=== PATIENT | male | born 1965 | race Caucasian/White ===

== ENCOUNTER → 2017-08-07 | Outpatient (REF) | payer BC, OTHER ==
[2017-08-09 00:06] LABS: Lyme Disease IgG/IgM Antibodie <0.91 ISR (0.00-0.90); Lyme Disease IgM Ab Quantitati <0.80 index (0.00-0.79)
== END ==
LOC: M LAB REF 11:56
PROVIDERS: ATTEND Internal Medicine
DX: Z11.2 Encounter for screening for other bacterial diseases (principal); W57.XXXA Bitten or stung by nonvenomous insect and other nonvenomous arthropods, initial encounter; Y92.89 Other specified places as the place of occurrence of the external cause; Y93.89 Activity, other specified; Y99.8 Other external cause status

== ENCOUNTER → 2017-12-09 | Outpatient (REF) | payer BC, OTHER | LOC: M LAB REF 17:16 | DX: N39.0 Urinary tract infection, site not specified (principal) | CPT/HCPCS: 87086 ==

== ENCOUNTER → 2018-10-24 | Outpatient (REF) | payer BC, OTHER | LOC: M LAB REF 17:25 | PROVIDERS: ATTEND Nurse Practitioner Adult Health | DX: R35.0 Frequency of micturition (principal); R30.0 Dysuria ==

== ENCOUNTER → 2018-12-05 | Outpatient (REF) | payer BC | LOC: M SFHCCLAY 17:16 | PROVIDERS: ATTEND Urology | DX: N39.0 Urinary tract infection, site not specified (principal) ==

== ENCOUNTER → 2018-12-23 | Outpatient (CLI) | payer BC | LOC: M SMT 09:23 | PROVIDERS: ATTEND Urology | DX: R97.20 Elevated prostate specific antigen [PSA] (principal) ==

== ENCOUNTER → 2020-06-14 | Outpatient (CLI) | payer BC | LOC: M OUTALCOH 07:57 | PROVIDERS: ATTEND Psychiatry & Neurology Addiction Medicine | DX: F10.10 Alcohol abuse, uncomplicated (principal) ==

== ENCOUNTER 2020-06-23 10:00 | Outpatient (RCR) | payer BC | END 2020-06-25 | LOC: M OUTALCOH 10:00 | PROVIDERS: ATTEND Psychiatry & Neurology Addiction Medicine | DX: F10.10 Alcohol abuse, uncomplicated (principal) ==

== ENCOUNTER 2020-07-19 09:00 | Outpatient (RCR) | payer BC | END 2020-07-25 | LOC: M OUTALCOH 09:00 | PROVIDERS: ATTEND Psychiatry & Neurology Addiction Medicine | DX: F10.10 Alcohol abuse, uncomplicated (principal) ==

== ENCOUNTER → 2020-08-14 | Outpatient (CLI) | payer BC | LOC: M LABSMTC 08:48 | PROVIDERS: ATTEND Pediatrics | DX: Z20.828 Contact with and (suspected) exposure to other viral communicable diseases (principal) ==

== ENCOUNTER 2020-08-15 14:00 | Outpatient (RCR) | payer BC | END 2020-08-25 | LOC: M OUTALCOH 14:00 | PROVIDERS: ATTEND Psychiatry & Neurology Addiction Medicine | DX: F10.10 Alcohol abuse, uncomplicated (principal) ==

== ENCOUNTER → 2020-09-22 | Outpatient (CLI) | payer BC ==
[2020-09-22 15:00] LABS: BLOOD UREA NITROGEN 12 MG/DL (7-18); CALCIUM LEVEL 9.1 MG/DL (8.5-10.1); CARBON DIOXIDE LEVEL 28 MEQ/L (21-32); CHLORIDE LEVEL 109 MEQ/L (98-107); CREATININE FOR GFR 1.05 MG/DL (0.70-1.30); GLOMERULAR FILTRATION RATE > 60.0 (>56); GLUCOSE, FASTING 103 MG/DL (70-100); POTASSIUM SERUM 4.4 MEQ/L (3.5-5.1); SODIUM LEVEL 142 MEQ/L (136-145)
== END ==
LOC: M PLALAB 08:52
PROVIDERS: ATTEND Urology
DX: N28.89 Other specified disorders of kidney and ureter (principal)

== ENCOUNTER → 2020-09-26 | Outpatient (CLI) | payer BC ==
--- NOTE | 2020-09-27 09:26 | REP ---
INDICATION: RENAL MASS. COMPARISON: 03/25/2020 (outside examination) TECHNIQUE: Axial precontrast, arterial phase, portal phase, and delayed phased contrast-enhanced images of the abdomen with coronal and sagittal reformations. 100 cc Isovue 370 intravenous contrast material administered without complication. This CT examination was performed using the following dose reduction techniques: Automated exposure control, adjustment of mA and/or kv according to the patient's size, and the use of iterative reconstruction technique. FINDINGS: Right kidney includes 1.5 cm hypodense lesion along the anterior mid pole cortex which remains stable in density value throughout the examination and is consistent with complex cyst. Left kidney includes 1.5 cm anterior midpole benign cyst and 1.4 cm posterior lower pole benign cyst. No nephrolithiasis, hydronephrosis, or acute perinephric stranding. Liver, spleen, pancreas, gallbladder, and bilateral adrenal glands are normal. The visualized enteric system including stomach and portions of the small and large bowel appear normal. Few scattered colonic diverticula noted. 2 cm fat containing periumbilical hernia identified. No ascites. No free air. No intraperitoneal or retroperitoneal adenopathy. Abdominal aorta and vasculature appear normal. Musculoskeletal structures are intact and without acute osseous abnormality. IMPRESSION: 1. Right renal lesion likely represents complex cyst. Consider 6 month follow-up ultrasound examination and further surveillance if necessary. Left kidney includes simple benign cysts. <Electronically signed by Fidel Adame > 09/27/20 0901
== END ==
LOC: M RAD 08:27
PROVIDERS: ATTEND Urology
DX: N28.89 Other specified disorders of kidney and ureter (principal); N28.1 Cyst of kidney, acquired; K57.90 Diverticulosis of intestine, part unspecified, without perforation or abscess without bleeding

== ENCOUNTER → 2020-09-26 | Outpatient (CLI) | payer BC ==
[~2020-09-26] MED LIST: ISOVUE-370 76% 100ML VIAL As Ordered ONE
--- NOTE | 2020-09-27 09:18 | REP ---
INDICATION: PULMONARY NODULE COMPARISON: 03/25/2020 (outside examination) TECHNIQUE: Axial contrast enhanced images from the thoracic inlet to the upper abdomen with coronal and sagittal reformations using 75 ml Isovue 370 intravenous contrast material. [address] CT examination was performed using the following dose reduction techniques: Automated exposure control, adjustment of mA and/or kv according to the patient's size, and use of iterative reconstruction technique. FINDINGS: Lung rincon are well aerated. Few scattered small calcified and noncalcified nodules measure no greater than 3 mm and likely represent sequelae of prior granulomatous disease. No consolidation, significant nodule or mass lesion otherwise identified. No effusion. No pneumothorax. Tracheobronchial tree is patent. No axillary, hilar, or mediastinal adenopathy. Thoracic aorta, pulmonary vasculature, and heart/pericardium are relatively normal/stable. Surrounding musculoskeletal structures are intact. IMPRESSION: 1. Findings suggesting sequelae of prior granulomatous disease with innumerable scattered predominantly calcified nodules up to 3 mm. 2. No further acute mediastinal or pleuroparenchymal process appreciated. <Electronically signed by Fidel Adame > 09/27/20 0914
== END ==
LOC: M RAD 08:33
PROVIDERS: ATTEND Nurse Practitioner Adult Health
DX: R91.8 Other nonspecific abnormal finding of lung field (principal)
CPT/HCPCS: 71260; Q9967

== ENCOUNTER → 2020-11-02 | Outpatient (REF) | payer BC, OTHER | LOC: M LAB REF 12:35 | PROVIDERS: ATTEND Nurse Practitioner Adult Health | DX: R91.8 Other nonspecific abnormal finding of lung field (principal) ==

== ENCOUNTER 2021-01-29 20:08 | Emergency (ER) | payer BC, OTHER ==
[~2021-01-29] VITALS: Ht 170.2 cm; Wt 106.8 kg
[2021-01-29] MEDS ORDERED: NORV5TAB PO (20:20)
[2021-01-29 21:02] LABS: BASO # 0.1 10^3/uL (0.0-0.2); BASO % 0.4 % (0.0-1.0); EOS % 0.2 % (0.0-3.0); HEMATOCRIT 47.6 % (42.0-52.0); HEMOGLOBIN 16.6 g/dl (13.5-17.5); LYMPH # 0.9 10^3/uL (1.5-5.0); LYMPH % 8.5 % (24.0-44.0); MEAN CORPUSCULAR HEMOGLOBIN 29.7 pg (27.0-33.0); MEAN CORPUSCULAR HGB CONC 34.9 g/dl (32.0-36.5); MEAN CORPUSCULAR VOLUME 85.2 fl (80.0-96.0); MONO # 0.7 10^3/uL (0.0-0.8); MONO % 6.1 % (2.0-8.0); NEUTROPHILS # 9.4 10^3/uL (1.5-8.5); NEUTROPHILS % 84.4 % (36.0-66.0); PLATELET COUNT, AUTOMATED 220 10^3/uL (150-450); RED BLOOD COUNT 5.59 10^6/uL (4.30-6.10); WHITE BLOOD COUNT 11.1 10^3/uL (4.0-10.0)
[2021-01-29 21:24] LABS: ALBUMIN 4.3 GM/DL (3.2-5.2); BILIRUBIN,DIRECT 0.2 MG/DL (0.0-0.2); BILIRUBIN,TOTAL 0.9 MG/DL (0.2-1.0); TOTAL PROTEIN 7.3 GM/DL (6.4-8.2)
[2021-01-29] MEDS: ONDANSETRON 4MG/2ML VIAL IV ONE (21:57)
[2021-01-29] MEDS ORDERED: ISOVUE-370 76% 100ML VIAL As Ordered ONE (22:04)
[2021-01-29] MEDS: MORPHINE 4 MG/ML 1ML VIAL/SYRINGE (J2270) IV ONE (22:12)
[2021-01-29 22:39] VITALS: BP 207/98
[2021-01-29] MEDS: NS 1,000 ML IV ONE (22:39)
[2021-01-29] MEDS: amLODIPine 5 MG TAB PO ONE (22:39)
--- NOTE | 2021-01-29 23:25 | REPVR ---
PROCEDURE INFORMATION: Exam: CT Abdomen And Pelvis With Contrast Exam date and time: 01/29/2021 10:21 PM Age: 55 years old Clinical indication: Abdominal pain; Flank; Left; Additional info: Left flank pain TECHNIQUE: Imaging protocol: Computed tomography of the abdomen and pelvis with contrast. Radiation optimization: All CT scans at this facility use at least one of these dose optimization techniques: automated exposure control; mA and/or kV adjustment per patient size (includes targeted exams where dose is matched to clinical indication); or iterative reconstruction. Contrast material: ISOVUE 370; Contrast volume: 100 ml; Contrast route: INTRAVENOUS (IV); COMPARISON: CT ABD W/O FOLL BY WITH CONTRA 09/26/2020 8:51 AM FINDINGS: Liver: Small cysts in the liver. Liver is otherwise unremarkable. Gallbladder and bile ducts: Normal. No calcified stones. No ductal dilation. Pancreas: Normal. No ductal dilation. Spleen: Normal. No splenomegaly. Adrenal glands: Normal. No mass. Kidneys and ureters: There is mild left hydronephrosis with an obstructing 4 x 2 mm calculus in the distal left ureter, approximately 2 cm above the ureterovesical junction. Mild left perinephric and periureteral edema. Small cysts in both kidneys. No calculi or hydronephrosis on the right. Stomach and bowel: Unremarkable. No obstruction. No mucosal thickening. Appendix: No evidence of appendicitis. Intraperitoneal space: Unremarkable. No free air. No significant fluid collection. Vasculature: Unremarkable. No abdominal aortic aneurysm. Lymph nodes: Unremarkable. No enlarged lymph nodes. Urinary bladder: Unremarkable as visualized. Reproductive: Unremarkable as visualized. Bones/joints: There are degenerative changes in the spine and pelvis. Chronic T11 compression fracture. Soft tissues: Unremarkable. IMPRESSION: Left hydronephrosis with obstructing 2 x 4 mm distal left ureteral calculus. COMMENTS: Consistent with the [employer]'s Incidental Findings Committee white paper (J Am Violeta Radiol 2018): Any incidental renal lesion less than 1 cm or classified as too small to characterize, or any incidental cystic renal lesion characterized as simple-appearing, is likely benign. No follow-up imaging is recommended for these lesions per consensus recommendations based on imaging criteria. Electronically signed by: Rafael Mathis On 01/29/2021 23:24:38 PM
[2021-01-29] MEDS ORDERED: FLOM0.4C39 PO (23:52)
[2021-01-29] MEDS ORDERED: PERC5TAB12 PO (23:53)
[2021-01-30] VITALS: BP 164/83
[2021-01-30] MEDS: TAMSULOSIN 0.4 MG CAP PO ONE (00:04)
[2021-01-30] MEDS: OXYCODONE/APAP 5MG/325MG(BULK FOR ED) 1 TABLET PO ONE (00:05)
== END 2021-01-30 00:19 | disposition home or self-care (01) ==
LOC: M ED 20:08
DX: N20.1 Calculus of ureter (principal); I10 Essential (primary) hypertension; Z79.899 Other long term (current) drug therapy
CPT/HCPCS: 74177; 80047; 80076; 81001; 83605; 83690; 85025; 96361; 96374; 96375; 99284; J2270; J2405; Q9967

== ENCOUNTER → 2021-02-24 | Outpatient (REF) | payer BC ==
[~2021-02-24] MED LIST changes: +FLOM0.4C39 PO; -ISOVUE-370 76% 100ML VIAL As Ordered ONE; +NORV5TAB PO; +PERC5TAB12 PO
[2021-02-24 17:20] LABS: APPEARANCE, URINE CLEAR (CLEAR); BACTERIA, URINE AUTO NEGATIVE (NEGATIVE); BILIRUBIN, URINE AUTO NEGATIVE (NEGATIVE); BLOOD, URINE BLOOD 1+ (NEGATIVE); COLOR, URINE YELLOW (YELLOW); GLUCOSE, URINE (UA) AUTO NEGATIVE (NEGATIVE); KETONE, URINE AUTO NEGATIVE (NEGATIVE); LEUKOCYTE ESTERASE, URINE AUTO NEGATIVE (NEGATIVE); MUCUS, URINE SMALL (NEGATIVE); NITRITE, URINE AUTO NEGATIVE (NEGATIVE); PROTEIN, URINE AUTO NEGATIVE (NEGATIVE); RBC, URINE AUTO 1 /HPF (0-3); SPECIFIC GRAVITY URINE AUTO 1.019 (1.002-1.035); SQUAMOUS EPITHELIAL CELL UR AU 0 /HPF (0-6); UROBILINOGEN, URINE AUTO 0.2 mg/dL (0.0-2.0); WBC, URINE AUTO 0 /HPF (0-3)
== END ==
LOC: M SMT 16:34
PROVIDERS: ATTEND Urology
DX: N20.1 Calculus of ureter (principal)

== ENCOUNTER → 2021-02-24 | Outpatient (CLI) | payer BC ==
--- NOTE | 2021-02-24 16:29 | REP ---
INDICATION: CALCULUS OF URETER COMPARISON: None. TECHNIQUE: Supine views of the abdomen and pelvis. FINDINGS: Evaluation of the urinary tract system is limited due to technique and overlying bowel gas. Multiple calcifications in the pelvis are identified likely representing phleboliths. Small intrarenal calculi cannot be excluded. Bowel gas pattern demonstrates mild fecal stasis. Skeletal structures demonstrate age-related changes. IMPRESSION: 1. Limited evaluation for urinary tract calcifications. <Electronically signed by Fidel Adame > 02/24/21 [id number]
== END ==
LOC: M PLAIMG 15:37
PROVIDERS: ATTEND Urology
DX: N20.1 Calculus of ureter (principal)

== ENCOUNTER 2021-03-18 22:38 | Observation (INO) | payer BC ==
[~2021-03-18] VITALS: Ht 170.2 cm; Wt 115.0 kg
[2021-03-19] MEDS ORDERED: NS 1,000 ML IV ONE ×2 (02:05→06:40)
[2021-03-19] MEDS ORDERED: ONDANSETRON 4MG/2ML VIAL IV ONE (02:05)
[2021-03-19] MEDS ORDERED: KETOROLAC 30 MG/ML 1ML VIAL IV ONE (02:05)
[2021-03-19 02:09] LABS: BASO # 0.1 10^3/uL (0.0-0.2); BASO % 0.5 % (0.0-1.0); EOS % 0.2 % (0.0-3.0); HEMATOCRIT 48.2 % (42.0-52.0); HEMOGLOBIN 16.9 g/dl (13.5-17.5); LYMPH # 1.2 10^3/uL (1.5-5.0); LYMPH % 9.9 % (24.0-44.0); MEAN CORPUSCULAR HEMOGLOBIN 29.4 pg (27.0-33.0); MEAN CORPUSCULAR HGB CONC 35.1 g/dl (32.0-36.5); MONO % 8.2 % (2.0-8.0); NEUTROPHILS # 9.5 10^3/uL (1.5-8.5); NEUTROPHILS % 80.7 % (36.0-66.0); PLATELET COUNT, AUTOMATED 225 10^3/uL (150-450); RED BLOOD COUNT 5.74 10^6/uL (4.30-6.10); WHITE BLOOD COUNT 11.7 10^3/uL (4.0-10.0)
[2021-03-19 02:41] LABS: ALBUMIN 4.5 GM/DL (3.2-5.2); ALT/SGPT 38 U/L (12-78); BILIRUBIN,DIRECT 0.2 MG/DL (0.0-0.2); BILIRUBIN,TOTAL 0.7 MG/DL (0.2-1.0); BLOOD UREA NITROGEN 20 MG/DL (7-18); CALCIUM LEVEL 9.1 MG/DL (8.5-10.1); CARBON DIOXIDE LEVEL 24 MEQ/L (21-32); CHLORIDE LEVEL 110 MEQ/L (98-107); CREATININE FOR GFR 1.08 MG/DL (0.70-1.30); GLOMERULAR FILTRATION RATE > 60.0 (>56); GLUCOSE, FASTING 113 MG/DL (70-100); LIPASE 61 U/L (73-393); SODIUM LEVEL 141 MEQ/L (136-145); TOTAL PROTEIN 7.3 GM/DL (6.4-8.2)
--- NOTE | 2021-03-19 04:03 | REPVR ---
PROCEDURE INFORMATION: Exam: CT Abdomen And Pelvis Without Contrast Exam date and time: 03/19/2021 2:17 AM Age: 55 years old Clinical indication: Abdominal pain; Flank; Left; Additional info: L flank pain TECHNIQUE: Imaging protocol: Computed tomography of the abdomen and pelvis without contrast. Radiation optimization: All CT scans at this facility use at least one of these dose optimization techniques: automated exposure control; mA and/or kV adjustment per patient size (includes targeted exams where dose is matched to clinical indication); or iterative reconstruction. COMPARISON: 1. CT ABD/PEL W/IV CONTRAST ONLY 2021-01-29 22:[address] ABD W/O FOLL BY WITH CONTRA 2020-09-26 08:51 FINDINGS: Limitations: Study is limited by the absence of contrast. Lungs: Couple small noncalcified pulmonary nodules measuring to 4 mm. Mediastinal space: Small gastroesophageal sliding type hiatal hernia. Liver: Normal. No mass. Gallbladder and bile ducts: Normal. No calcified stones. No ductal dilation. Pancreas: Normal. No ductal dilation. Spleen: Normal. No splenomegaly. Adrenal glands: Normal. No mass. Kidneys and ureters: 8 mm obstructing left vesicoureteral junction calculus causes moderate left renal collecting system dilatation/hydronephrosis. Left renal swelling. Stomach and bowel: Unremarkable. No obstruction. No mucosal thickening. Appendix: No evidence of appendicitis. Intraperitoneal space: Unremarkable. No free air. No significant fluid collection. Vasculature: Unremarkable. No abdominal aortic aneurysm. Lymph nodes: Unremarkable. No enlarged lymph nodes. Urinary bladder: Unremarkable as visualized. Reproductive: Unremarkable as visualized. Bones/joints: Lumbar laminectomy. Soft tissues: Unremarkable. IMPRESSION: 1. 8 mm obstructing left vesicoureteral junction calculus causes moderate left renal collecting system dilatation/hydronephrosis. 2. Couple small noncalcified pulmonary nodules measuring to 4 mm. COMMENTS: As per Fleischner Society guidelines for follow-up and management of pulmonary nodules: For patients at low risk (minimal or absent history of smoking and of other known risk factors), recommend follow-up chest CT at 12 months; if unchanged, no further follow-up. For patient at high risk (history of smoking or of other known risk factors), recommend initial follow-up chest CT at 6-12 months, then at 18-24 months if no interval change. Electronically signed by: Jacob Ga On 03/19/2021 04:02:28 AM
[2021-03-19] MEDS ORDERED: MORPHINE 4 MG/ML 1ML VIAL/SYRINGE (J2270) IV ONE (04:15)
[2021-03-19] MEDS ORDERED: NS 1,000 ML IV SCH ×2 (04:25)
[2021-03-19] MEDS ORDERED: ACETAMINOPHEN TAB 650MG DOSE (2X325MG) PO PRN (04:25)
[2021-03-19] MEDS ORDERED: MORPHINE 4 MG/ML 1ML VIAL/SYRINGE (J2270) IV PRN (04:25)
[2021-03-19] MEDS ORDERED: AMLO1TAB25 PO (04:34)
[2021-03-19] MEDS ORDERED: ONDANSETRON 4MG/2ML VIAL IV PRN ×2 (04:40→10:15)
[2021-03-19] MEDS ORDERED: MORPHINE 2 MG/ML 1ML VIAL (J2270) IV PRN (04:40)
--- NOTE | 2021-03-19 04:52 | HPEPDOC ---
[facility] Medical History & Physical Date of Admission Mar 19, 2021 Date of Service: Mar 19, 2021 Attending Physician: TAWNYA WHITE MD History and Physical CHIEF COMPLAINT: [55 y/o M c/o left flank pain x1 day] HISTORY OF PRESENT ILLNESS: [This is a 55 y/o male with a pmh of htn who presents to our ed with a cc of left sided flank pain that began yesterday 03/18. Patient states that he had this same pain approx 1 month ago and at that time was diagnosed with nephrolithiasis but had spontaneous resolution without passing the stone. Patient was put on pain medication and flomax at that time. Patient states that his pain returned approx one week ago as well but was short lived. Patient contacted his urologist, Dr. Rudd, about these symptoms and was told that if they return, to report to the ED. Patient states that his pain came on acutely yesterday and decided to come in for evaluation. Patient describes his pain as severe left sided flank pain that goes into his lower abdomen. Patient states that he is still able to urinate and it is not painful to do so. Patient notes no blood in his urine. Patient endorses associated chills, nausea, and one episode of dry heaving. Patient, at the time of my exam, denies fevers, cough, sob, chest pain, chest tightness, diarrhea, constipation, lower extremity edema, syncope, dizziness. Patient found to have 8mm obstructing left sided uvj stone on CT in the ED. ] PAST MEDICAL HISTORY: 1. [See HPI PAST SURGICAL HISTORY: 1. [Unspec. right arm surgery]. 2. [Unspec back surgery]. 3. [Unspec. finger surgery 4. Unspec. wrist surgery]. SOCIAL HISTORY: Tobacco use:[Denies] ETOH: [Denies] Illicit drug use: [Denies] FAMILY HISTORY: Father - cad, pancreatic ca ALLERGIES: Please see below. REVIEW OF SYSTEMS: CONSTITUTIONAL: [See HPI]. HEENT: [Denies uri type sx]. CARDIOVASCULAR: [Denies chest pain, palpitations]. RESPIRATORY: [Denies sob, wheezing]. GASTROINTESTINAL: [See HPI]. GENITOURINARY: [See HPI]. SKIN: [Denies rash]. MUSCULOSKELETAL: [Denies acute joint/back pain]. NEUROLOGICAL: [Denies syncope, paresthesias]. ENDOCRINE: [Denies hx of DM]. HEMATOLOGIC/LYMPHATIC: [Denies easy bruising]. HOME MEDICATIONS: Please see below. PHYSICAL EXAMINATION: VITAL SIGNS: Please see below. GENERAL APPEARANCE: [This is a 55 y/o male who is alert and oriented to all questioning. He does not appear to be in any acute stress.]. HEENT: [No mass or lesion. EOMI. No scleral icterus. Nares patent. Oral mucosa moist]. CARDIOVASCULAR: [Regular rate, rhythm. No murmurs, rubs, gallops]. LUNGS: [Good air flow b/l. No wheezing, rales, rhonchi]. ABDOMEN: [Soft, mildly tender to suprapubic region]. MUSCULOSKELETAL: [No joint deformity]. EXTREMITIES: [No pedal edema appreciated. No overlying skin changes. Pulses intact.]. NEUROLOGICAL: [Speech clear. A+Ox3. No focal deficits]. PSYCHIATRIC: [Mood and affect appear appropriate.]. LABORATORY DATA: See below. IMAGING: [CT Abd/pelvis: FINDINGS: Limitations: Study is limited by the absence of contrast. Lungs: Couple small noncalcified pulmonary nodules measuring to 4 mm. Mediastinal space: Small gastroesophageal sliding type hiatal hernia. Liver: Normal. No mass. Gallbladder and bile ducts: Normal. No calcified stones. No ductal dilation. Pancreas: Normal. No ductal dilation. Spleen: Normal. No splenomegaly. Adrenal glands: Normal. No mass. Kidneys and ureters: 8 mm obstructing left vesicoureteral junction calculus causes moderate left renal collecting system dilatation/hydronephrosis. Left renal swelling. Stomach and bowel: Unremarkable. No obstruction. No mucosal thickening. Appendix: No evidence of appendicitis. Intraperitoneal space: Unremarkable. No free air. No significant fluid collection. Vasculature: Unremarkable. No abdominal aortic aneurysm. Lymph nodes: Unremarkable. No enlarged lymph nodes. Urinary bladder: Unremarkable as visualized. Reproductive: Unremarkable as visualized. Bones/joints: Lumbar laminectomy. Soft tissues: Unremarkable. IMPRESSION: 1. 8 mm obstructing left vesicoureteral junction calculus causes moderate left renal collecting system dilatation/hydronephrosis. 2. Couple small noncalcified pulmonary nodules measuring to 4 mm. ] MICROBIOLOGY: Please see below. ASSESSMENT: [This is a 55 y/o male with a pmh of htn who presents to our ed with a cc of left sided flank pain that began yesterday 03/18. Patient states that he had this same pain approx 1 month ago and at that time was diagnosed with nephrolithiasis but had spontaneous resolution without passing the stone. Patient found to have 8mm obstructing left sided uvj stone on CT in the ED. ]. . PLAN: 1. [Left sided hydronephrosis 2/2 8mm obstructing uvj stone - Dr. Lucero, urology, has been consulted from the ED. Plan to take pt to OR for stenting. Assistance greatly appreciated. - Patient medically optimized for procedure - NPO diet for procedure - will give ivf in the mean time - Pain control with toradol, morphine - Zofran for nausea - Admit to med surg for tx 2. HTN - continue amlodipine DVT prophylaxis - mechanical]. Vital Signs Vital Signs Date Time Temp Pulse Resp B/P (MAP) Pulse Ox O2 Delivery O2 Flow Rate FiO2 03/19/21 04:43 18 Room Air 03/19/21 03:30 144/85 (104) 03/19/21 03:23 65 90 03/18/21 22:39 98.4 Laboratory Data Labs 24H Laboratory Tests 2 03/18/21 23:03: Urine Color YELLOW, Urine Appearance CLEAR, Urine pH 6.0, Urine Specific [place] 1.017, Urine Protein NEGATIVE, Urine Glucose (UA) NEGATIVE, Urine Ketones NEGATIVE, Urine Blood NEGATIVE, Urine Nitrite NEGATIVE, Urine Bilirubin NEGATIVE, Urine Urobilinogen 0.2, Urine Leukocyte Esterase NEGATIVE, Urine WBC (Auto) 1, Urine RBC (Auto) 3, Urine Hyaline Casts (Auto) 0, Urine Bacteria (Auto) NEGATIVE, Urine Squamous Epithelial Cells 0, Urine Sperm (Auto) 03/19/21 02:00: Immature Granulocyte % (Auto) 0.5, Neutrophils (%) (Auto) 80.7H, Lymphocytes (%) (Auto) 9.9L, Monocytes (%) (Auto) 8.2H, Eosinophils (%) (Auto) 0.2, Basophils (%) (Auto) 0.5, Neutrophils # (Auto) 9.5H, Lymphocytes # (Auto) 1.2L, Monocytes # (Auto) 1.0H, Eosinophils # (Auto) 0.0, Basophils # (Auto) 0.1, Nucleated Red Blood Cells % (auto) 0.0, Anion Gap 7L, Glomerular Filtration Rate > 60.0, Calcium Level 9.1, Total Bilirubin 0.7, Direct Bilirubin 0.2, Aspartate Amino Transf (AST/SGOT) 18, Alanine Aminotransferase (ALT/SGPT) 38, Alkaline Phosphatase 63, Total Protein 7.3, Albumin 4.5, Albumin/Globulin Ratio 1.6, Lipase 61L CBC/BMP Laboratory Tests 03/19/21 02:00 Home Medications Scheduled Amlodipine Besylate (Amlodipine Besylate) 10 Mg Tablet, 10 MG PO QHS Allergies Coded Allergies: No Known Allergies (Unverified , 01/29/21) A-FIB/CHADSVASC A-FIB History Current/History of A-Fib/PAF?: No LUISA VALENTIN Mar 19, 2021 04:52
[2021-03-19] MEDS ORDERED: cefTRIAXone SOD 1 GM in D5W MINI-BAG PLUS 50 ML IV SCH (05:00)
[2021-03-19 05:35] LABS: RSV AMPLIFICATION NEGATIVE (NEGATIVE)
--- NOTE | 2021-03-19 05:54 | IPNPDOC ---
Subjective Review oF Systems Chief Complaint The patient is a 55-year-old male admitted with a reason for visit of Ureterolithiasis. History and Physical CHIEF COMPLAINT: Left distal ureteral stone and recurrent renal colic HISTORY OF PRESENT ILLNESS: 55 y/o male with a pmh of htn who presents to our ed with a cc of left sided flank pain that began yesterday 03/18. Patient states that he had this same pain approx 1 month ago and at that time was diagnosed with nephrolithiasis but had spontaneous resolution without passing the stone. Patient was put on pain medication and flomax at that time. Patient states that his pain returned approx one week ago. Patient contacted his urologist, Dr. Rudd, about these symptoms and was told that if they return, to report to the ED. Patient states that his pain came on acutely yesterday and decided to come in for evaluation. Patient describes his pain as severe left sided flank pain that goes into his lower abdomen. Patient states that he is still able to urinate and it is not painful to do so. Patient notes no blood in his urine. Patient endorses associated chills, nausea, and one episode of dry heaving. Patient denies fevers and chills. CT reveled a 8mm obstructing left sided uvj stone. PAST MEDICAL HISTORY: HTN PAST SURGICAL HISTORY: 1. [Unspec. right arm surgery]. 2. [Unspec back surgery]. 3. [Unspec. finger surgery 4. Unspec. wrist surgery]. SOCIAL HISTORY: Tobacco use:[Denies] ETOH: [Denies] Illicit drug use: [Denies] FAMILY HISTORY: Father - cad, pancreatic ca ALLERGIES: Please see below. REVIEW OF SYSTEMS: CONSTITUTIONAL: [See HPI]. HEENT: [Denies uri type sx]. CARDIOVASCULAR: [Denies chest pain, palpitations]. RESPIRATORY: [Denies sob, wheezing]. GASTROINTESTINAL: [See HPI]. GENITOURINARY: [See HPI]. SKIN: [Denies rash]. MUSCULOSKELETAL: [Denies acute joint/back pain]. NEUROLOGICAL: [Denies syncope, paresthesias]. ENDOCRINE: [Denies hx of DM]. HEMATOLOGIC/LYMPHATIC: [Denies easy bruising]. HOME MEDICATIONS: Please see below. PHYSICAL EXAMINATION: GENERAL APPEARANCE: [This is a 55 y/o male who is alert and oriented to all questioning. He does not appear to be in any acute stress.]. . ABDOMEN: Soft, + left CVAT IMAGING: [CT Abd/pelvis: FINDINGS: Limitations: Study is limited by the absence of contrast. Lungs: Couple small noncalcified pulmonary nodules measuring to 4 mm. Mediastinal space: Small gastroesophageal sliding type hiatal hernia. Liver: Normal. No mass. Gallbladder and bile ducts: Normal. No calcified stones. No ductal dilation. Pancreas: Normal. No ductal dilation. Spleen: Normal. No splenomegaly. Adrenal glands: Normal. No mass. Kidneys and ureters: 8 mm obstructing left vesicoureteral junction calculus causes moderate left renal collecting system dilatation/hydronephrosis. Left renal swelling. Stomach and bowel: Unremarkable. No obstruction. No mucosal thickening. Appendix: No evidence of appendicitis. Intraperitoneal space: Unremarkable. No free air. No significant fluid collection. Vasculature: Unremarkable. No abdominal aortic aneurysm. Lymph nodes: Unremarkable. No enlarged lymph nodes. Urinary bladder: Unremarkable as visualized. Reproductive: Unremarkable as visualized. Bones/joints: Lumbar laminectomy. Soft tissues: Unremarkable. IMPRESSION: 1. 8 mm obstructing left vesicoureteral junction calculus causes moderate left renal collecting system dilatation/hydronephrosis. 2. Couple small noncalcified pulmonary nodules measuring to 4 mm. ] ASSESSMENT: 55 y/o male renal colic and 8mm obstructing left sided uvj stone on CT . PLAN: admit to hospitalist for cysto stent possible URS/lithotripsy Objective Vital Signs/I&O Vital Signs Date Time Temp Pulse Resp B/P (MAP) Pulse Ox O2 Delivery O2 Flow Rate FiO2 03/19/21 04:43 18 Room Air 03/19/21 03:30 144/85 (104) 03/19/21 03:23 65 90 03/18/21 22:39 98.4 I&O- Last 24 Hours up to 6 AM 03/19/21 05:59 Intake Total 1000 ml Balance 1000 ml Laboratory Data Labs 24H Laboratory Tests 2 03/18/21 23:03: Urine Color YELLOW, Urine Appearance CLEAR, Urine pH 6.0, Urine Specific [place] 1.017, Urine Protein NEGATIVE, Urine Glucose (UA) NEGATIVE, Urine Ketones NEGATIVE, Urine Blood NEGATIVE, Urine Nitrite NEGATIVE, Urine Bilirubin NEGATIVE, Urine Urobilinogen 0.2, Urine Leukocyte Esterase NEGATIVE, Urine WBC (Auto) 1, Urine RBC (Auto) 3, Urine Hyaline Casts (Auto) 0, Urine Bacteria (Auto) NEGATIVE, Urine Squamous Epithelial Cells 0, Urine Sperm (Auto) 03/19/21 02:00: Immature Granulocyte % (Auto) 0.5, Neutrophils (%) (Auto) 80.7H, Lymphocytes (%) (Auto) 9.9L, Monocytes (%) (Auto) 8.2H, Eosinophils (%) (Auto) 0.2, Basophils (%) (Auto) 0.5, Neutrophils # (Auto) 9.5H, Lymphocytes # (Auto) 1.2L, Monocytes # (Auto) 1.0H, Eosinophils # (Auto) 0.0, Basophils # (Auto) 0.1, Nucleated Red Blood Cells % (auto) 0.0, Anion Gap 7L, Glomerular Filtration Rate > 60.0, Calcium Level 9.1, Total Bilirubin 0.7, Direct Bilirubin 0.2, Aspartate Amino Transf (AST/SGOT) 18, Alanine Aminotransferase (ALT/SGPT) 38, Alkaline Phosphatase 63, Total Protein 7.3, Albumin 4.5, Albumin/Globulin Ratio 1.6, Lipase 61L 03/19/21 04:51: Coronavirus (COVID-19)(PCR) NEGATIVE, Influenza Type A (RT-PCR) NEGATIVE, Influenza Type B (RT-PCR) NEGATIVE, Respiratory Syncytial Virus (PCR) NEGATIVE CBC/BMP Laboratory Tests 03/19/21 02:00 Assessment/Plan Date Seen The patient was seen on 03/19/21. Plan/VTE VTE Prophylaxis Ordered?: Yes EMIL ARREAGA M.D. Mar 19, 2021 05:54
[2021-03-19] MEDS ORDERED: CIPROFLOXACIN 400 MG in IV 1 EA IV SCH (06:00)
[2021-03-19] MEDS ORDERED: D5W/0.45% SODIUM CHLORIDE 1,000 ML IV SCH (06:30)
[2021-03-19] MEDS ORDERED: CONRAY-60 60% 50ML VIAL (Q9961) As Ordered ONE (07:18)
[2021-03-19 07:23] LABS: INR 1.01; PROTHROMBIN TIME 13.5 SECONDS (12.5-14.3)
[2021-03-19 07:24] LABS: PARTIAL THROMBOPLASTIN TIME 29.3 SECONDS (24.2-38.5)
[2021-03-19] MEDS ORDERED: KETOROLAC 30 MG/ML 1ML VIAL IV PRN (08:00)
[2021-03-19] MEDS ORDERED: ACETAMINOPHEN 1000MG 100ML IV BTL (OFIRMEV) (J0131 PER 10MG) As Ordered ONE (08:51)
[2021-03-19] MEDS ORDERED: ePHEDrine SULFATE 25 MG/5 ML(5MG/ML) SYRINGE As Ordered ONE (08:51)
[2021-03-19] MEDS ORDERED: propofoL 200 MG/20 ML VIAL As Ordered ONE (08:51)
[2021-03-19] MEDS ORDERED: LIDOCAINE 2% 100MG/5ML SDV (FOR ANES.) As Ordered ONE (08:51)
[2021-03-19] MEDS ORDERED: MIDAZOLAM INJ 2MG/2ML VIAL (J2250 PER 1MG) As Ordered ONE (08:51)
[2021-03-19] MEDS ORDERED: dexameTHASONE 4 MG/ML 1ML VIAL (J1100 PER 1MG) As Ordered ONE (08:51)
[2021-03-19] MEDS ORDERED: ONDANSETRON 4MG/2ML VIAL As Ordered ONE (08:51)
[2021-03-19] MEDS ORDERED: fentaNYL 250 MCG/5 ML INJECTION (J3010) As Ordered ONE (08:51)
--- NOTE | 2021-03-19 09:23 | REP ---
INDICATION: STENT PLACEMENT LEFT SIDE. COMPARISON: Comparison CT study earlier this date. Left distal ureteral calculus.. TECHNIQUE: Single fluoroscopically obtained spot radiograph of the abdomen. 11 seconds of fluoroscopy time is reported. FINDINGS: A single fluoroscopically obtained spot radiograph of the abdomen document left ureteral stent placement. IMPRESSION: Procedural imaging. <Electronically signed by Merlin Blair > 03/19/21 [id number]
--- NOTE | 2021-03-19 09:30 | ROOPDOC ---
[facility] Report Of Operation Report of Operation DATE OF PROCEDURE: 03/19/21 PREPROCEDURE DIAGNOSES: LEFT RENAL COLIC AND LEFT DISTAL URETERAL NEPHROLITHIASIS POSTPROCEDURE DIAGNOSES: same PROCEDURE PERFORMED: 1. Cystoscopy 2. Left ureteroscopy and laser lithotripsy 3. Insertion of left ureteral stent SURGEON: EMIL ARREAGA MD RIVET PASSER: NONE ANESTHESIA: GENERAL LMA ESTIMATED BLOOD LOSS: Approximately 1 mL. COMPLICATIONS: NONE REMARKS: NORMAL RETROGRADE FINDINGS: 8 mm left ureteral stone SPECIMENS REMOVED: NONE PROCEDURE NOTE: 55 YO MAN OBSTRUCTING LEFT URETERAL STONE AND COLIC CAME TO ER AND ADMITTED FOR PAIN CONTROL. DESCRIPTION OF PROCEDURE: PATIENT WAS TAKEN TO THE OR AND TIME OUT AND CONSENT VERIFIED. HE RECEIVED IV [id number] IN THE ER. HE UNDERWENT GENERAL ANESTHESIA WITH LMA, WAS PLACED IN THE DORSOLITHOTOMY POSITION AND PREPPED AND DRAPED IN THE USUAL STERILE FASHION. A 21 FR CYSTOSCOPE WAS INTRODUCED INTO THE URETHRA AND BLADDER, WHICH WAS UNREMARKABLE. THE LEFT OU WAS IDENTIFIED AND 0.38 GUIDEWIRE PLACED INTO THE KIDNEY. A SMALL SEMIRIGID URETEROSCOPE WAS INTRODUCE INTO THE DISTAL URETER,, THE 8 MM STONE WAS LASER DUSTED AND FRAGMENT AND 4 MM PIECE REMOVES AND SENT TO PATHOLOGY/CHEMISTRY. THE CYSTOSCOPE WAS USED TO INSERT A 6 FR MULTILENGTH URETERAL STENT WAS INSERTED INTO THE KIDNEY AND DISTAL COIL IN THE BLADDER. THE BLADDER WAS DRAINED AND CYSTOSCOPE REMOVED. PATIENT WAS AWAKENED AND TRANSFERRED TO THE PACU. HE TOLERATED THE PROCEDURE WELL WITHOUT COMPLICATIONS. HE WILL BE DISCHARGED HOME AND F/U IN THE [facility] TO SCHEDULE STENT REMOVAL IN 1-2 WEEKS. EMIL ARREAGA M.D. Mar 19, 2021 09:30
[2021-03-19 10:10] VITALS: BP 142/91
[2021-03-19] MEDS ORDERED: METOCLOPRAMIDE INJ 10MG/2ML VIAL (J2765 PER 1) IV PRN (10:15)
[2021-03-19] MEDS ORDERED: PERCOCET 5MG/325MG TAB PO PRN (10:15)
[2021-03-19] MEDS ORDERED: LR 1,000 ML IV SCH (10:15)
[2021-03-19] MEDS ORDERED: fentaNYL 100 MCG/2 ML INJECTION (J3010) IV PRN (10:15)
[2021-03-19 10:40] VITALS: BP 112/77
[2021-03-19 11:30] VITALS: BP 115/76
[2021-03-19 12:30] VITALS: BP 119/80
[2021-03-19 13:30] VITALS: BP 134/73
[2021-03-19 14:30] VITALS: BP 134/76
[2021-03-19] MEDS ORDERED: OXYB-54 PO (14:41)
[2021-03-19] MEDS ORDERED: SENN-83 PO (14:41)
[2021-03-19] MEDS ORDERED: SENNA 8.6 MG TAB (SENOKOT) PO ONE (16:00)
[2021-03-19] MEDS ORDERED: oxyBUTYnin *DITROPAN XL* 5 MG TABCR PO ONE (16:00)
--- NOTE | 2021-03-19 19:05 | DS.PDOC ---
Discharge Summary General Date of Admission Mar 18, 2021 at 22:39 Date of Discharge 03/19/2021 Primary Care Physician: Shayy Weinberg Attending Physician: VINCE CHARLTON DO Specialist/Consultants Involve: EMIL LUCERO M.D. Discharge Summary PROCEDURES PERFORMED DURING STAY: cystoscopy with lithotripsy and ureteral stent placement. ADMITTING DIAGNOSES: 1. Left-sided hydronephrosis secondary to a millimeter obstructing UVJ stone. 2. Hypertension DISCHARGE DIAGNOSES: 1. Left-sided hydronephrosis secondary to 8 mm obstructing UVJ stone,, resolved 2. Hypertension COMPLICATIONS/CHIEF COMPLAINT: Ureterolithiasis. HISTORY OF PRESENT ILLNESS: Patient is a 55-year-old male with past medical history of hypertension who presented to the ED with a chief complaint of left- sided flank pain that began yesterday, 03/18/2021. Patient had same pain approximately 1 month ago and was diagnosed with nephrolithiasis but had spontaneous resolution without passing the stone. Patient was put on pain medication and Flomax at the time. Patient states that the pain returned approximately 1 week ago and came on acutely worse yesterday and decided to come in for the evaluation. Patient was found to have a severe left-sided flank pain and was diagnosed with a kidney stone was admitted for surgical management.. HOSPITAL COURSE: Patient had cystoscopy with lithotripsy and stent placement in the left ureter. Patient did well after the surgery. In speaking with the urologist, Dr. Lucero, the patient was okay for discharge after the surgery. Patient was doing well. Patient was having some pain when he would urinate in his flank which was controlled with Toradol. Patient was also having a burning sensation on the tip of his penis with urination. Patient did pass a few clots which is expected after instrumentation of the urinary system. Patient was discharged on .. DISCHARGE MEDICATIONS: Please see below. ALLERGIES: Please see below. PHYSICAL EXAMINATION ON DISCHARGE: VITAL SIGNS: Please see below. General: Alert and oriented male patient who was lying in bed when I walked in. Patient was able get up walk to the bathroom without any difficulty. Patient did not appear to be in any acute distress. HEENT: Normocephalic, atraumatic, moist mucous membranes. Neck: No lymphadenopathy or thyromegaly Cardiac: Regular rate and rhythm, no murmurs, normal S1, normal S2 Pulm: Clear to auscultation bilaterally. No wheezes, rhonchi, rales Abd: Nondistended, nontender to palpation, normal bowel sounds Ext: No edema bilateral lower extremities LABORATORY DATA: Please see below. IMAGING: CT of the abdomen and pelvis without contrast performed on 03/19/2021 was reported to show 8 mm structure left vesicoureteral junction calculus causing moderate left renal collecting system dilatation/hydronephrosis. Couple small noncalcified pulmonary nodules measuring up to 4 mm. A retrograde pyelogram on 03/19/2021 was reported to show procedural imaging. PROGNOSIS: Good ACTIVITY: As tolerated. DIET: Regular DISCHARGE PLAN: Discharge home DISPOSITION: 01 Home, Self-Care. DISCHARGE INSTRUCTIONS: 1. Follow-up with your primary care provider within 3 to 5 days discharge. 2. Follow-up with urology as scheduled. 3. Take oxybutynin and senna if you are having difficulties with pain during urination 4. Return to the emergency department if symptoms worsen. ITEMS TO FOLLOWUP ON ON OUTPATIENT: 1. Stent removal. DISCHARGE CONDITION: Stable. TIME SPENT ON DISCHARGE: 20 minutes. Vital Signs/I&Os Vital Signs Date Time Temp Pulse Resp B/P (MAP) Pulse Ox O2 Delivery O2 Flow Rate FiO2 03/19/21 14:30 98.6 86 18 134/76 (95) 98 Room Air 03/19/21 09:23 10.0 I&O- Last 24 Hours up to 6 AM 03/19/21 06:00 Intake Total 1000 ml Balance 1000 ml Laboratory Data Labs 24H Laboratory Tests 2 03/18/21 23:03: Urine Color YELLOW, Urine Appearance CLEAR, Urine pH 6.0, Urine Specific [place] 1.017, Urine Protein NEGATIVE, Urine Glucose (UA) NEGATIVE, Urine Ketones NEGATIVE, Urine Blood NEGATIVE, Urine Nitrite NEGATIVE, Urine Bilirubin NEGATIVE, Urine Urobilinogen 0.2, Urine Leukocyte Esterase NEGATIVE, Urine WBC (Auto) 1, Urine RBC (Auto) 3, Urine Hyaline Casts (Auto) 0, Urine Bacteria (Auto) NEGATIVE, Urine Squamous Epithelial Cells 0, Urine Sperm (Auto) 03/19/21 02:00: Immature Granulocyte % (Auto) 0.5, Neutrophils (%) (Auto) 80.7H, Lymphocytes (%) (Auto) 9.9L, Monocytes (%) (Auto) 8.2H, Eosinophils (%) (Auto) 0.2, Basophils (%) (Auto) 0.5, Neutrophils # (Auto) 9.5H, Lymphocytes # (Auto) 1.2L, Monocytes # (Auto) 1.0H, Eosinophils # (Auto) 0.0, Basophils # (Auto) 0.1, Nucleated Red Blood Cells % (auto) 0.0, Anion Gap 7L, Glomerular Filtration Rate > 60.0, Calcium Level 9.1, Total Bilirubin 0.7, Direct Bilirubin 0.2, Aspartate Amino Transf (AST/SGOT) 18, Alanine Aminotransferase (ALT/SGPT) 38, Alkaline Phosphatase 63, Total Protein 7.3, Albumin 4.5, Albumin/Globulin Ratio 1.6, Lipase 61L 03/19/21 04:51: Coronavirus (COVID-19)(PCR) NEGATIVE, Influenza Type A (RT-PCR) NEGATIVE, Influenza Type B (RT-PCR) NEGATIVE, Respiratory Syncytial Virus (PCR) NEGATIVE 03/19/21 06:56: Prothrombin Time 13.5, Prothromb Time International Ratio 1.01, Activated Partial Thromboplast Time 29.3 CBC/BMP Laboratory Tests 03/19/21 02:00 Discharge Medications Scheduled Amlodipine Besylate (Amlodipine Besylate) 10 Mg Tablet, 10 MG PO QHS, (Reported) Oxybutynin Chloride (Oxybutynin Chloride ER) 5 Mg Tab.er.24, 1 TAB PO DAILY Sennosides (Senna) 8.6 Mg Tablet, 8.6 MG PO DAILY Allergies Coded Allergies: No Known Allergies (Unverified , 01/29/21) VINCE CHARLTON DO Mar 19, 2021 19:05
== END 2021-03-19 15:37 | disposition home or self-care (01) ==
LOC: M ED 22:38 → M ED INP 22:39 → M MSPAV 03-19 10:03
PROVIDERS: ADMIT General Practice; ATTEND Family Medicine
DX: N20.1 Calculus of ureter (principal); N28.1 Cyst of kidney, acquired; N23 Unspecified renal colic; I10 Essential (primary) hypertension; K44.9 Diaphragmatic hernia without obstruction or gangrene; E66.9 Obesity, unspecified; Z68.39 Body mass index [BMI] 39.0-39.9, adult; Z79.899 Other long term (current) drug therapy
CPT/HCPCS: 36415; 52356; 74176; 74420; 80048; 80076; 81001; 82365; 83690; 85025; 85610; 85730; 87631; 88300; 93041; 96361; 96365; 96375; 96376; 99285; C1769; C2617; J0131; J0696; J1100; J1885; J2250; J2270; J2405; J3010; Q9961

== ENCOUNTER → 2021-08-10 | Outpatient (CLI) | payer BC ==
[~2021-08-10] MED LIST changes: +AMLO1TAB25 PO; +OXYB-54 PO; +SENN-83 PO
--- NOTE | 2021-08-10 15:57 | REP ---
INDICATION: RT UPPER THIGH MASS NEAR GROIN COMPARISON: None TECHNIQUE: Directed grayscale and color ultrasound examination using linear high-frequency and curved array transducers. FINDINGS: Ultrasound examination along the right lateral thigh at the site of palpable mass demonstrates 2 ovoid hyperechoic avascular lesions in the subcutaneous tissue measuring 3.6 x 0.9 x 3.3 cm and 1.4 x 0.8 x 3.2 cm. IMPRESSION: 1. Two ovoid hyperechoic lesions likely representing benign lipomas. Correlation with physical examination is recommended. <Electronically signed by Fidel Adame > 08/10/21 [id number]
== END ==
LOC: M RAD 15:01
PROVIDERS: ATTEND Nurse Practitioner Adult Health
DX: R22.41 Localized swelling, mass and lump, right lower limb (principal)

== ENCOUNTER → 2021-10-05 | Outpatient (CLI) | payer BC | LOC: M PLAIMG 14:17 | PROVIDERS: ATTEND Urology | DX: N20.0 Calculus of kidney (principal) ==

== ENCOUNTER → 2022-02-28 | Outpatient (CLI) | payer BC ==
[~2022-02-28] MED LIST changes: +ACET-683 PO; +GABA-282 PO; +IBUP-1022 PO; +PRED10TA2 PO
== END ==
LOC: M LABSMTC 09:34
PROVIDERS: ATTEND Internal Medicine Gastroenterology
DX: Z01.812 Encounter for preprocedural laboratory examination (principal); Z11.52 Encounter for screening for COVID-19

== ENCOUNTER 2022-03-05 10:41 | Day surgery (SDC) | payer BC ==
[~2022-03-05] VITALS: Ht 175.3 cm; Wt 118.8 kg
[~2022-03-05 10:41] MED LIST changes: +NS 1,000 ML IV ONE
[2022-03-05] MEDS ORDERED: propofoL 200 MG/20 ML VIAL As Ordered ONE (12:05)
[2022-03-05 12:10] VITALS: BP 131/74
== END 2022-03-05 12:19 | disposition home or self-care (01) ==
LOC: M OPP 10:41
PROVIDERS: ATTEND Internal Medicine Gastroenterology
DX: Z12.11 Encounter for screening for malignant neoplasm of colon (principal); D12.6 Benign neoplasm of colon, unspecified; K64.0 First degree hemorrhoids; Z79.899 Other long term (current) drug therapy; Z87.442 Personal history of urinary calculi

== ENCOUNTER → 2022-11-07 | Outpatient (CLI) | payer BC ==
[~2022-11-07] MED LIST changes: -NS 1,000 ML IV ONE
== END ==
LOC: M LABSMTC 08:16
PROVIDERS: ATTEND Pain Medicine Interventional Pain Medicine
DX: Z01.812 Encounter for preprocedural laboratory examination (principal)

== ENCOUNTER → 2022-11-21 | Outpatient (CLI) | payer BC | LOC: M LABSMTC 07:36 | PROVIDERS: ATTEND Pain Medicine Interventional Pain Medicine | DX: Z01.812 Encounter for preprocedural laboratory examination (principal) ==

== ENCOUNTER → 2022-12-25 | Outpatient (CLI) | payer BC | LOC: M RAD 11:35 | PROVIDERS: ATTEND Nurse Practitioner Adult Health | DX: M71.21 Synovial cyst of popliteal space [Baker], right knee (principal) ==

== ENCOUNTER → 2023-07-30 | Outpatient (CLI) | payer BC, OTHER | LOC: M WUC 13:09 | PROVIDERS: ATTEND Nurse Practitioner Family | DX: M17.11 Unilateral primary osteoarthritis, right knee (principal); M25.461 Effusion, right knee ==

== ENCOUNTER → 2023-10-15 | Outpatient (CLI) | payer BC ==
[2023-10-15 18:10] LABS: APPEARANCE, URINE HAZY (CLEAR); BACTERIA, URINE AUTO NEGATIVE (NEGATIVE); BILIRUBIN, URINE AUTO NEGATIVE (NEGATIVE); BLOOD, URINE BLOOD NEGATIVE (NEGATIVE); COLOR, URINE YELLOW (YELLOW); GLUCOSE, URINE (UA) AUTO NEGATIVE (NEGATIVE); KETONE, URINE AUTO NEGATIVE (NEGATIVE); LEUKOCYTE ESTERASE, URINE AUTO NEGATIVE (NEGATIVE); MUCUS, URINE SMALL (NEGATIVE); NITRITE, URINE AUTO NEGATIVE (NEGATIVE); PROTEIN, URINE AUTO 1+ mg/dL (NEGATIVE); RBC, URINE AUTO 3 /HPF (0-3); SPECIFIC GRAVITY URINE AUTO 1.026 (1.002-1.035); SQUAMOUS EPITHELIAL CELL UR AU 0 /HPF (0-6); WBC, URINE AUTO 2 /HPF (0-3)
== END ==
LOC: M PLAIMG 15:25
PROVIDERS: ATTEND Urology
DX: N20.0 Calculus of kidney (principal)

== ENCOUNTER 2024-01-14 12:11 | Inpatient (IN) | payer BC ==
[~2024-01-14] VITALS: Ht 170.2 cm; Wt 118.6 kg
[2024-01-14] MEDS: KETOROLAC 30 MG/ML 1ML VIAL IV ONE (12:29)
[2024-01-14] MEDS ORDERED: DULO30CA9 PO (12:37)
[2024-01-14] MEDS ORDERED: DULO60CA35 PO (12:55)
[2024-01-14] MEDS: PERCOCET 5MG/325MG TAB PO ONE (13:01)
[2024-01-14] MEDS ORDERED: SILD100T PO (14:12)
[2024-01-14] MEDS ORDERED: VALA500T5 PO (14:12)
[2024-01-14] MEDS ORDERED: AMLO-360 PO (14:12)
[2024-01-14] MEDS ORDERED: HOME MED LIST COMPLETE! XX SCH (14:15)
[2024-01-14] MEDS: HYDROMORPHONE HCL 0.5 MG/ 0.5 ML SYRINGE IV PRN (14:51)
[2024-01-14 14:54] LABS: BASO % 0.4 % (0.0-1.0); EOS % 0.2 % (0.0-3.0); HEMATOCRIT 45.4 % (42.0-52.0); HEMOGLOBIN 15.8 g/dl (13.5-17.5); LYMPH # 0.9 10^3/uL (1.5-5.0); LYMPH % 8.4 % (24.0-44.0); MEAN CORPUSCULAR HGB CONC 34.8 g/dl (32.0-36.5); MEAN CORPUSCULAR VOLUME 86.1 fl (80.0-96.0); MONO # 0.6 10^3/uL (0.0-0.8); MONO % 5.7 % (2.0-8.0); NEUTROPHILS # 9.1 10^3/uL (1.5-8.5); NEUTROPHILS % 84.9 % (36.0-66.0); PLATELET COUNT, AUTOMATED 221 10^3/uL (150-450); RED BLOOD COUNT 5.27 10^6/uL (4.30-6.10); WHITE BLOOD COUNT 10.7 10^3/uL (4.0-10.0)
[2024-01-14 15:12] LABS: INR 1.16; PROTHROMBIN TIME 14.4 SECONDS (12.5-14.5)
[2024-01-14 15:25] LABS: ALBUMIN 3.8 G/DL (3.2-5.2); ALKALINE PHOSPHATASE 55 U/L (46-116); ALT/SGPT 34 U/L (7.0-40); AST/SGOT 42 U/L (<34); BILIRUBIN,TOTAL 1.1 MG/DL (0.3-1.2); BLOOD UREA NITROGEN 13 MG/DL (9-23); CALCIUM LEVEL 8.8 MG/DL (8.3-10.6); CARBON DIOXIDE LEVEL 24 MMOL/L (20-31); CHLORIDE LEVEL 111 MMOL/L (98-107); CREATININE FOR GFR 0.89 MG/DL (0.70-1.30); GLOMERULAR FILTRATION RATE > 60.0 (>49); GLUCOSE, FASTING 102 MG/DL (74-106); POTASSIUM SERUM 5.5 MMOL/L (3.5-5.1); SODIUM LEVEL 141 MMOL/L (136-145); TOTAL PROTEIN 6.3 G/DL (5.7-8.2)
[2024-01-14] MEDS ORDERED: MOM 30ML SUSPENSION UDC PO PRN (16:10)
[2024-01-14] MEDS ORDERED: MAALOX 30 ML SUSP *UDC PO PRN (16:10)
[2024-01-14] MEDS ORDERED: ACETAMINOPHEN TAB 650MG DOSE (2X325MG) PO PRN (16:10)
[2024-01-14] MEDS ORDERED: MORPHINE 2 MG/ML 1ML VIAL IV PRN (16:35)
[2024-01-14 17:00] VITALS: BP 161/85; TEMP 96.4; O2SAT 97
[2024-01-14] MEDS: LIDOCAINE 5% (LIDODERM) PATCH TD SCH (17:50)
[2024-01-14] MEDS: MORPHINE 4 MG/ML 1ML VIAL IV PRN (17:50)
[2024-01-14 18:00] VITALS: O2SAT 95
[2024-01-14] MEDS ORDERED: NALBUPHINE HCL 1MG/0.1ML (100MG/10ML) MDV IV PRN (18:30)
[2024-01-14] MEDS ORDERED: EPIDURAL/PCA KEYS XX PRN (18:30)
[2024-01-14] MEDS ORDERED: NALOXONE INJ 0.4MG/1ML VIAL IV PRN (18:30)
[2024-01-14 19:35] VITALS: BP 138/81; TEMP 98.3; O2SAT 95
[2024-01-14] MEDS ORDERED: MIDAZOLAM INJ 2MG/2ML VIAL As Ordered ONE (20:46)
[2024-01-14] MEDS ORDERED: fentaNYL 100 MCG/2 ML INJECTION As Ordered ONE (20:46)
[2024-01-14] MEDS ORDERED: LIDOCAINE 2% W/EPINEPHRINE 20ML VIAL **PRES FREE As Ordered ONE (20:54)
[2024-01-14] MEDS: MIDAZOLAM INJ 2MG/2ML VIAL IV ONE (21:11)
[2024-01-14] MEDS: fentaNYL 100 MCG/2 ML INJECTION IV ONE (21:11)
[2024-01-14] MEDS ORDERED: LIDOCAINE PRES-FREE 2% 10ML AMP As Ordered ONE (21:14)
[2024-01-14] MEDS: FENTANYL/BUPIVACAINE BAG 250 ML EPIDURAL SCH (21:30)
[2024-01-14] MEDS: LIDOCAINE 2% W/EPINEPHRINE 20ML VIAL **PRES FREE INJ ONE (21:30)
[2024-01-14] MEDS: LIDOCAINE 2% MDV 20ML VIAL SC ONE (21:30)
[2024-01-14] MEDS ORDERED: GABAPENTIN 300 MG CAP PO PRN (22:30)
[2024-01-14 22:48] VITALS: BP 123/79; TEMP 97.2; O2SAT 98
[2024-01-14 23:59] VITALS: BP 127/70; TEMP 98.1; O2SAT 94
[2024-01-15] VITALS (10 sets, daily range): BP systolic 124–151; BP diastolic 63–75; TEMP 97.8–100.8; O2SAT 84–97
[2024-01-15 05:35] LABS: BASO % 0.2 % (0.0-1.0); EOS % 0.4 % (0.0-3.0); HEMATOCRIT 42.9 % (42.0-52.0); HEMOGLOBIN 14.6 g/dl (13.5-17.5); LYMPH # 1.4 10^3/uL (1.5-5.0); LYMPH % 17.6 % (24.0-44.0); MEAN CORPUSCULAR VOLUME 88.3 fl (80.0-96.0); MONO # 0.7 10^3/uL (0.0-0.8); MONO % 9.1 % (2.0-8.0); NEUTROPHILS # 5.8 10^3/uL (1.5-8.5); NEUTROPHILS % 72.5 % (36.0-66.0); PLATELET COUNT, AUTOMATED 183 10^3/uL (150-450); RED BLOOD COUNT 4.86 10^6/uL (4.30-6.10); WHITE BLOOD COUNT 8.1 10^3/uL (4.0-10.0)
[2024-01-15 05:46] LABS: BLOOD UREA NITROGEN 13 MG/DL (9-23); CALCIUM LEVEL 8.3 MG/DL (8.3-10.6); CARBON DIOXIDE LEVEL 27 MMOL/L (20-31); CHLORIDE LEVEL 110 MMOL/L (98-107); CREATININE FOR GFR 0.88 MG/DL (0.70-1.30); GLOMERULAR FILTRATION RATE > 60.0 (>49); GLUCOSE, FASTING 107 MG/DL (74-106); POTASSIUM SERUM 4.1 MMOL/L (3.5-5.1); SODIUM LEVEL 142 MMOL/L (136-145)
[2024-01-15] MEDS ORDERED: DULoxetine 30MG CAPSULE (CYMBALTA) PO SCH (09:00)
[2024-01-15] MEDS ORDERED: ENOXAPARIN 40MG/0.4ML SYRINGE (J1650 PER 10MG) SC SCH (09:00)
[2024-01-15] MEDS ORDERED: valACYclovir HCL 500 MG TAB PO PRN (15:00)
[2024-01-15] MEDS: diphenhydrAMINE 50MG/ML VIAL IV PRN (20:11)
[2024-01-15] MEDS: DULoxetine 30MG CAPSULE (CYMBALTA) PO SCH (20:12)
[2024-01-16] VITALS (11 sets, daily range): BP systolic 104–142; BP diastolic 56–81; TEMP 96.6–98.6; O2SAT 89–95
[2024-01-16] MEDS: KETOROLAC 30 MG/ML 1ML VIAL IV PRN (00:08)
[2024-01-16 06:30] LABS: BLOOD UREA NITROGEN 11 MG/DL (9-23); CALCIUM LEVEL 8.3 MG/DL (8.3-10.6); CARBON DIOXIDE LEVEL 26 MMOL/L (20-31); CHLORIDE LEVEL 108 MMOL/L (98-107); GLOMERULAR FILTRATION RATE > 60.0 (>49); GLUCOSE, FASTING 112 MG/DL (74-106); MAGNESIUM LEVEL 2.1 MG/DL (1.8-2.4); POTASSIUM SERUM 4.1 MMOL/L (3.5-5.1); SODIUM LEVEL 141 MMOL/L (136-145)
[2024-01-16] MEDS: OLMESARTAN MEDOXOMIL 20 MG TAB (BENICAR) PO SCH (12:21)
[2024-01-16] MEDS: SENOKOT S TAB PO SCH (12:22)
[2024-01-16] MEDS: amLODIPine 5 MG TAB PO SCH (12:22)
[2024-01-16] MEDS: ONDANSETRON 4MG 2ML VIAL IV PRN (13:44)
[2024-01-16] MEDS: cefTRIAXone SOD 2 GM in D5W MINI-BAG PLUS 50 ML IV SCH (20:13)
[2024-01-16] MEDS: DOXYCYCLINE HYCLATE 100MG TABLET PO SCH (20:24)
[2024-01-17] VITALS (17 sets, daily range): BP systolic 120–143; BP diastolic 63–87; TEMP 97.1–97.8; O2SAT 89–96
[2024-01-17 06:02] LABS: BLOOD UREA NITROGEN 11 MG/DL (9-23); CALCIUM LEVEL 8.1 MG/DL (8.3-10.6); CARBON DIOXIDE LEVEL 29 MMOL/L (20-31); CHLORIDE LEVEL 105 MMOL/L (98-107); CREATININE FOR GFR 0.83 MG/DL (0.70-1.30); GLOMERULAR FILTRATION RATE > 60.0 (>49); GLUCOSE, FASTING 115 MG/DL (74-106); POTASSIUM SERUM 4.1 MMOL/L (3.5-5.1); SODIUM LEVEL 139 MMOL/L (136-145)
[2024-01-17 06:07] LABS: PROCALCITONIN 0.07 ng/ml
[2024-01-17] MEDS: MIRALAX *UNIT DOSE* 17GM PACKET PO PRN (08:49)
[2024-01-17] MEDS: PERCOCET 5MG/325MG TAB PO PRN (12:41)
[2024-01-17] MEDS: MAGNESIUM CITRATE 300ML BTL PO ONE (13:58)
[2024-01-17] MEDS: ENOXAPARIN 40MG/0.4ML SYRINGE (J1650 PER 10MG) SC SCH (17:49)
[2024-01-17] MEDS: HYDROmorphone HCL 2MG/ML 1ML VIAL IV PRN (22:53)
[2024-01-18] VITALS (25 sets, daily range): BP systolic 130–171; BP diastolic 70–95; TEMP 97.1–98.3; O2SAT 90–97
[2024-01-18] MEDS: HYDROMORPHONE HCL 0.5 MG/ 0.5 ML SYRINGE IV PRN (01:56)
[2024-01-18] MEDS: ALBUTEROL SULFATE 2.5MG/0.5ML INH NEB SOLN NEB ONE (05:38)
[2024-01-18 05:59] LABS: BLOOD UREA NITROGEN 15 MG/DL (9-23); CALCIUM LEVEL 8.3 MG/DL (8.3-10.6); CARBON DIOXIDE LEVEL 32 MMOL/L (20-31); CHLORIDE LEVEL 103 MMOL/L (98-107); CREATININE FOR GFR 0.77 MG/DL (0.70-1.30); GLOMERULAR FILTRATION RATE > 60.0 (>49); GLUCOSE, FASTING 121 MG/DL (74-106); MAGNESIUM LEVEL 2.2 MG/DL (1.8-2.4); SODIUM LEVEL 138 MMOL/L (136-145)
[2024-01-18] MEDS ORDERED: fentaNYL 50 MCG/HR PATCH TOP SCH (07:35)
[2024-01-18] MEDS ORDERED: FENTANYL REMOVAL DOCUMENTATION MISC XX SCH (07:35)
[2024-01-18] MEDS: PANTOPRAZOLE 40MG VIAL IV SCH (09:12)
[2024-01-18] MEDS: MIRALAX *UNIT DOSE* 17GM PACKET PO SCH (09:12)
[2024-01-18] MEDS: CALCIUM CARBONATE 500 MG CHEW U/D PO SCH (09:14)
[2024-01-18] MEDS: PERCOCET 5MG/325MG TAB PO PRN (09:17)
[2024-01-18] MEDS: ACETAMINOPHEN TAB 650MG DOSE (2X325MG) PO SCH (09:18)
[2024-01-18] MEDS: guaiFENesin ER TABLET 600 MG TAB PO SCH (09:20)
[2024-01-18] MEDS: BUPIVACAINE/NACL BAG 250 ML EPIDURAL SCH (11:00)
[2024-01-18] MEDS: BISACODYL 10MG SUPP PR ONE (18:07)
[2024-01-18] MEDS: LIDOCAINE 5% (LIDODERM) PATCH TD SCH (20:41)
[2024-01-18] MEDS ORDERED: LIDOCAINE 5% (LIDODERM) PATCH TD SCH (21:00)
[2024-01-19] VITALS (17 sets, daily range): BP systolic 132–152; BP diastolic 80–90; TEMP 97.3–99; O2SAT 89–94
[2024-01-19 07:06] LABS: BASO % 0.8 % (0.0-1.0); EOS # 0.1 10^3/uL (0.0-0.5); EOS % 2.7 % (0.0-3.0); HEMATOCRIT 42.4 % (42.0-52.0); HEMOGLOBIN 14.6 g/dl (13.5-17.5); LYMPH # 1.1 10^3/uL (1.5-5.0); LYMPH % 23.5 % (24.0-44.0); MEAN CORPUSCULAR HEMOGLOBIN 29.7 pg (27.0-33.0); MEAN CORPUSCULAR HGB CONC 34.4 g/dl (32.0-36.5); MEAN CORPUSCULAR VOLUME 86.4 fl (80.0-96.0); MONO # 0.6 10^3/uL (0.0-0.8); MONO % 11.5 % (2.0-8.0); NEUTROPHILS % 61.3 % (36.0-66.0); PLATELET COUNT, AUTOMATED 209 10^3/uL (150-450); RED BLOOD COUNT 4.91 10^6/uL (4.30-6.10); WHITE BLOOD COUNT 4.9 10^3/uL (4.0-10.0)
[2024-01-19 07:37] LABS: BLOOD UREA NITROGEN 14 MG/DL (9-23); CALCIUM LEVEL 8.2 MG/DL (8.3-10.6); CARBON DIOXIDE LEVEL 30 MMOL/L (20-31); CHLORIDE LEVEL 105 MMOL/L (98-107); CREATININE FOR GFR 0.74 MG/DL (0.70-1.30); GLOMERULAR FILTRATION RATE > 60.0 (>49); GLUCOSE, FASTING 112 MG/DL (74-106); MAGNESIUM LEVEL 1.9 MG/DL (1.8-2.4); POTASSIUM SERUM 3.9 MMOL/L (3.5-5.1); SODIUM LEVEL 139 MMOL/L (136-145)
[2024-01-20 04:00] VITALS: BP 139/82; TEMP 98.4; O2SAT 92
[2024-01-20 07:59] LABS: BLOOD UREA NITROGEN 12 MG/DL (9-23); CALCIUM LEVEL 8.2 MG/DL (8.3-10.6); CARBON DIOXIDE LEVEL 29 MMOL/L (20-31); CHLORIDE LEVEL 106 MMOL/L (98-107); CREATININE FOR GFR 0.82 MG/DL (0.70-1.30); GLOMERULAR FILTRATION RATE > 60.0 (>49); GLUCOSE, FASTING 106 MG/DL (74-106); SODIUM LEVEL 140 MMOL/L (136-145)
[2024-01-20 08:00] VITALS: BP 136/83; TEMP 97.3; O2SAT 93
[2024-01-20] MEDS: CEFDINIR 300 MG CAP (OMNICEF) PO SCH (09:11)
[2024-01-20 12:00] VITALS: BP 133/88; TEMP 98; O2SAT 93
[2024-01-20 16:00] VITALS: BP 141/87; TEMP 97.9; O2SAT 94
[2024-01-20 20:00] VITALS: BP 140/80; TEMP 97.6; O2SAT 94
[2024-01-21] VITALS (8 sets, daily range): BP systolic 138–172; BP diastolic 68–92; TEMP 97.1–98.4; O2SAT 92–94
[2024-01-21 06:51] LABS: BLOOD UREA NITROGEN 12 MG/DL (9-23); CALCIUM LEVEL 8.7 MG/DL (8.3-10.6); CARBON DIOXIDE LEVEL 28 MMOL/L (20-31); CHLORIDE LEVEL 107 MMOL/L (98-107); CREATININE FOR GFR 0.77 MG/DL (0.70-1.30); GLOMERULAR FILTRATION RATE > 60.0 (>49); GLUCOSE, FASTING 111 MG/DL (74-106); MAGNESIUM LEVEL 2.1 MG/DL (1.8-2.4); POTASSIUM SERUM 3.9 MMOL/L (3.5-5.1); SODIUM LEVEL 140 MMOL/L (136-145)
[2024-01-21] MEDS: PANTOPRAZOLE 40MG TAB (PROTONIX) PO SCH (09:05)
[2024-01-21] MEDS ORDERED: oxyCODONE 5MG TAB PO PRN (11:30)
[2024-01-21] MEDS ORDERED: KETOROLAC 30 MG/ML 1ML VIAL IV PRN (11:30)
[2024-01-21] MEDS: DICLOFENAC EPOLAMINE 1.3% PATCH TOP SCH (12:10)
[2024-01-21] MEDS: KETOROLAC 30 MG/ML 1ML VIAL IV SCH (12:11)
[2024-01-21 13:01] LABS: PROCALCITONIN 0.09 ng/ml
[2024-01-21] MEDS ORDERED: GABAPENTIN 300 MG CAP PO SCH (16:00)
[2024-01-21] MEDS: GABAPENTIN 100 MG CAP PO SCH (16:32)
[2024-01-21] MEDS: ACETAMINOPHEN 500 MG TAB PO SCH (17:00)
[2024-01-21] MEDS ORDERED: ACETAMINOPHEN TAB 650MG DOSE (2X325MG) PO SCH (18:00)
[2024-01-22 01:45] VITALS: BP 158/88; TEMP 97.3; O2SAT 93
[2024-01-22] MEDS: oxyCODONE 5MG TAB PO PRN (02:15)
[2024-01-22 05:48] VITALS: O2SAT 93
[2024-01-22 05:56] VITALS: BP 144/92; TEMP 97.5; O2SAT 90
[2024-01-22 08:03] VITALS: BP 143/95
[2024-01-22] MEDS: amLODIPine 5 MG TAB PO SCH (08:03)
[2024-01-22 09:00] VITALS: O2SAT 93
[2024-01-22 10:00] VITALS: BP 143/93; TEMP 97.2; O2SAT 93
[2024-01-22] MEDS ORDERED: DICL1PAT6 TOP (11:02)
[2024-01-22] MEDS ORDERED: ACET-683 PO (11:02)
[2024-01-22] MEDS ORDERED: MUCI600T31 PO (11:02)
[2024-01-22] MEDS ORDERED: LIDO5TD TD (11:02)
[2024-01-22] MEDS ORDERED: OXYC1TAB23 PO (11:02)
[2024-01-22] MEDS ORDERED: IBUP-1114 PO (11:02)
[2024-01-22] MEDS ORDERED: MIRA3350 PO (11:02)
== END 2024-01-22 12:51 | disposition home or self-care (01) | DRG 135 ==
LOC: M ED 12:11 → EDBD 12:11 → M ED INP 16:06 → M PCU 16:50 → M MSPAV 01-21 13:26
PROVIDERS: ADMIT Student in an Organized Health Care Education/Training Program; ATTEND Student in an Organized Health Care Education/Training Program
PROC: 3E0S3BZ Introduction of Anesthetic Agent into Epidural Space, Percutaneous Approach (ICD-10-PCS; principal; 2024-01-14 20:35)
DX: S22.5XXA Flail chest, initial encounter for closed fracture (principal); E87.5 Hyperkalemia; I10 Essential (primary) hypertension; W11.XXXA Fall on and from ladder, initial encounter; Y92.009 Unspecified place in unspecified non-institutional (private) residence as the place of occurrence of the external cause; Y93.H2 Activity, gardening and landscaping; K59.00 Constipation, unspecified; M54.50 Low back pain, unspecified; G89.29 Other chronic pain; F17.200 Nicotine dependence, unspecified, uncomplicated; R91.8 Other nonspecific abnormal finding of lung field; Z79.899 Other long term (current) drug therapy

== ENCOUNTER → 2024-02-11 | Outpatient (CLI) | payer BC ==
[~2024-02-11] MED LIST changes: +AMLO-360 PO; +DICL1PAT6 TOP; +DULO30CA9 PO; +DULO60CA35 PO; +IBUP-1114 PO; +LIDO5TD TD; +MIRA3350 PO; +MUCI600T31 PO; +OXYC1TAB23 PO; +SILD100T PO; +VALA500T5 PO
== END ==
LOC: M PLAIMG 14:58
PROVIDERS: ATTEND Nurse Practitioner Family
DX: S22.5XXD Flail chest, subsequent encounter for fracture with routine healing (principal)

== ENCOUNTER → 2024-04-07 | Outpatient (CLI) | payer BC | LOC: M PLAIMG 12:27 | PROVIDERS: ATTEND Nurse Practitioner Family | DX: R91.8 Other nonspecific abnormal finding of lung field (principal) ==

== ENCOUNTER → 2024-12-23 | Outpatient (CLI) | payer MEDICARE ==
[~2024-12-23] MED LIST changes: +AMLO-319 PO; -AMLO-360 PO; -FLOM0.4C39 PO; +GABA-1172 PO; -GABA-282 PO; +SENN-187 PO; -SENN-83 PO; +TAMS-18 PO
== END ==
LOC: M SLEEP HO 12-14 12:16
PROVIDERS: ATTEND Internal Medicine Cardiovascular Disease
DX: G47.33 Obstructive sleep apnea (adult) (pediatric) (principal)

== ENCOUNTER → 2025-03-29 | Outpatient (CLI) | payer MEDICARE | LOC: M PLAIMG 07:59 | PROVIDERS: ATTEND Internal Medicine Cardiovascular Disease | DX: I71.21 Aneurysm of the ascending aorta, without rupture (principal); I11.9 Hypertensive heart disease without heart failure; R06.02 Shortness of breath; R00.1 Bradycardia, unspecified; I34.0 Nonrheumatic mitral (valve) insufficiency; I37.1 Nonrheumatic pulmonary valve insufficiency ==

== ENCOUNTER → 2025-03-31 | Outpatient (CLI) | payer MEDICARE | LOC: M SLEEP 20:00 | PROVIDERS: ATTEND Physician Assistant | DX: G47.33 Obstructive sleep apnea (adult) (pediatric) (principal) ==

== ENCOUNTER → 2025-05-13 | Outpatient (CLI) | payer MEDICARE ==
[~2025-05-13] MED LIST changes: -IBUP-1022 PO; +IBUP600T42 PO
== END ==
LOC: M SLEEP 20:00
PROVIDERS: ATTEND Physician Assistant
DX: G47.33 Obstructive sleep apnea (adult) (pediatric) (principal)

== ENCOUNTER 2025-07-26 15:52 | Emergency (ER) | payer MEDICARE ==
[~2025-07-26] VITALS: Ht 170.2 cm; Wt 108.0 kg
[2025-07-26 15:54] VITALS: BP 137/72; TEMP 97.3
[2025-07-26] MEDS: MORPHINE 10 MG/ML 1 ML VIAL IM ONE (17:17)
[2025-07-26] MEDS ORDERED: MEDR4PAK PO (19:20)
[2025-07-26] MEDS ORDERED: PERC5TAB12 PO (19:20)
[2025-07-26 19:29] VITALS: O2SAT 99
[2025-07-26] MEDS: PERCOCET 5MG/325MG TAB PO ONE (19:29)
[2025-07-26] MEDS: predniSONE 20 MG TAB PO ONE (19:30)
== END 2025-07-26 19:51 | disposition home or self-care (01) ==
LOC: M ED 15:52
DX: M54.50 Low back pain, unspecified (principal); Z79.1 Long term (current) use of non-steroidal anti-inflammatories (NSAID); Z79.899 Other long term (current) drug therapy
CPT/HCPCS: 72110; 72128; 96372; 99283; J7512

== ENCOUNTER 2025-07-28 10:29 | Emergency (ER) | payer MEDICARE ==
[~2025-07-28] VITALS: Ht 170.2 cm; Wt 107.9 kg
[~2025-07-28 10:29] MED LIST changes: +MEDR4PAK PO
[2025-07-28 15:43] VITALS: BP 157/77; TEMP 97.6; O2SAT 98
== END 2025-07-28 15:44 | disposition home or self-care (01) ==
LOC: M ED 10:29
DX: M51.27 Other intervertebral disc displacement, lumbosacral region (principal); M54.16 Radiculopathy, lumbar region; I10 Essential (primary) hypertension; Z79.1 Long term (current) use of non-steroidal anti-inflammatories (NSAID); Z79.899 Other long term (current) drug therapy